=== PATIENT | female | born 1960 | race Native Hawaiian/Other Pacific Islander ===

== ENCOUNTER 2016-11-01 10:20 | Outpatient (CLI) | payer OTHER ==
[~2016-11-01 10:20] MED LIST: ALTOPREV40 MG; ALTOPREV40 MG OR; ALTOPREV40 MG PO; ARIP10TA PO; BENZSOL4 OT; CARV6.25; CARV6.25 PO; CYCL10TA35 PO; DIVA500T PO; FOLI1TAB26; GLUCOPHAGE1000 MG; GLUCOPHAGE1000 MG PO; LEVO0.08 PO; METF100038 OR; SERT100T PO; UNITH DIRECT88 MCG PO; UNITHROID75 MCG; ZESTRIL40 MG; ZESTRIL40 MG OR
== END 2016-11-01 19:30 | disposition home or self-care (01) ==
LOC: RAD 10:20
DX: M79.601 Pain in right arm (principal)

== ENCOUNTER 2016-12-20 09:56 | Outpatient (CLI) | payer OTHER ==
[2016-12-20 10:50] LABS: PLATELET COUNT 131 K/uL (152-353)
[2016-12-20 11:22] LABS: POTASSIUM 4.7 mmol/L (3.6-5.2)
== END 2016-12-20 19:06 | disposition home or self-care (01) ==
LOC: LABW 09:56
PROVIDERS: Internal Medicine
DX: E78.4 Other hyperlipidemia (principal); E11.9 Type 2 diabetes mellitus without complications; D64.89 Other specified anemias; I10 Essential (primary) hypertension
CPT/HCPCS: 36415; 80053; 80061; 83036; 84439; 84443; 84550; 85027

== ENCOUNTER 2017-03-31 09:46 | Outpatient (CLI) | payer OTHER ==
[2017-03-31 10:20] LABS: PLATELET COUNT 193 K/uL (152-353)
[2017-03-31 10:51] LABS: POTASSIUM 4.5 mmol/L (3.6-5.2)
== END 2017-03-31 18:58 | disposition home or self-care (01) ==
LOC: LABW 09:46
PROVIDERS: Psychiatry & Neurology Psychiatry
DX: F25.1 Schizoaffective disorder, depressive type (principal); Z79.899 Other long term (current) drug therapy; Z51.81 Encounter for therapeutic drug level monitoring
CPT/HCPCS: 36415; 80053; 80061; 84443; 85027

== ENCOUNTER 2017-09-03 08:41 | Outpatient (CLI) | payer OTHER ==
[2017-09-03 09:19] LABS: PLATELET COUNT 226 K/uL (152-353)
== END 2017-09-04 08:41 | disposition home or self-care (01) ==
LOC: LABW 08:41
PROVIDERS: Internal Medicine
DX: E11.9 Type 2 diabetes mellitus without complications (principal); E03.8 Other specified hypothyroidism
CPT/HCPCS: 36415; 80053; 80061; 81000; 82043; 82570; 83036; 84439; 84443; 85027

== ENCOUNTER 2018-08-18 08:38 | Outpatient (CLI) | payer OTHER ==
[2018-08-18 09:14] LABS: PLATELET COUNT 213 K/uL (152-353)
[2018-08-18 09:23] LABS: POTASSIUM 4.3 mmol/L (3.6-5.2)
== END 2018-08-18 19:23 | disposition home or self-care (01) ==
LOC: LABW 08:38
PROVIDERS: Internal Medicine
DX: Z79.899 Other long term (current) drug therapy (principal); F25.1 Schizoaffective disorder, depressive type; E11.9 Type 2 diabetes mellitus without complications; M10.00 Idiopathic gout, unspecified site; E03.9 Hypothyroidism, unspecified; E78.5 Hyperlipidemia, unspecified
CPT/HCPCS: 36415; 80053; 80061; 83036; 84439; 84443; 84550; 85027

== ENCOUNTER 2019-03-31 09:29 | Outpatient (CLI) | payer OTHER ==
[2019-03-31 09:53] LABS: PLATELET COUNT 266 K/uL (152-353)
[2019-03-31 10:22] LABS: POTASSIUM 4.7 mmol/L (3.6-5.2)
== END 2019-03-31 22:53 | disposition home or self-care (01) ==
LOC: LABW 09:29
PROVIDERS: Internal Medicine
DX: Z79.899 Other long term (current) drug therapy (principal); F25.1 Schizoaffective disorder, depressive type; E03.8 Other specified hypothyroidism; I10 Essential (primary) hypertension; E11.9 Type 2 diabetes mellitus without complications
CPT/HCPCS: 36415; 80053; 80061; 80164; 81000; 83036; 84439; 84443; 85027

== ENCOUNTER 2019-04-15 16:28 | Outpatient (CLI) | payer OTHER | END 2019-04-15 23:22 | disposition home or self-care (01) | LOC: RAD 16:28 | DX: R07.89 Other chest pain (principal) ==

== ENCOUNTER 2019-08-24 12:22 | Outpatient (CLI) | payer OTHER | END 2019-08-24 19:28 | disposition home or self-care (01) | LOC: RAD 12:22 | DX: M85.89 Other specified disorders of bone density and structure, multiple sites (principal) ==

== ENCOUNTER 2020-09-14 14:58 | Outpatient (CLI) | payer OTHER ==
[2020-09-14 15:59] LABS: PLATELET COUNT 134 K/uL (152-353)
[2020-09-14 16:21] LABS: POTASSIUM 5.4 mmol/L (3.6-5.2)
== END 2020-09-14 19:37 | disposition home or self-care (01) ==
LOC: LAB 14:58
PROVIDERS: ATTEND Internal Medicine
DX: E11.9 Type 2 diabetes mellitus without complications (principal); M10.9 Gout, unspecified
CPT/HCPCS: 80053; 80061; 83036; 84439; 84443; 84550; 85027

== ENCOUNTER 2020-12-08 09:42 | Outpatient (CLI) | payer OTHER ==
[2020-12-22 14:22] LABS: PLATELET COUNT 174 K/uL (152-353)
[2020-12-22 14:29] LABS: POTASSIUM 4.8 mmol/L (3.6-5.2)
== END 2020-12-08 16:00 | disposition home or self-care (01) ==
LOC: LABW 09:42
PROVIDERS: ATTEND Internal Medicine
DX: Z00.00 Encounter for general adult medical examination without abnormal findings (principal); F25.1 Schizoaffective disorder, depressive type; E66.9 Obesity, unspecified; I10 Essential (primary) hypertension; E03.8 Other specified hypothyroidism; E11.69 Type 2 diabetes mellitus with other specified complication; Z79.899 Other long term (current) drug therapy; Z13.820 Encounter for screening for osteoporosis; E55.9 Vitamin D deficiency, unspecified
CPT/HCPCS: 80053; 80061; 80164; 81000; 82043; 82306; 82570; 83036; 84439; 84443; 85027

== ENCOUNTER 2022-05-20 14:24 | Outpatient (CLI) | payer OTHER | END 2022-05-20 20:09 | disposition home or self-care (01) | LOC: LAB 14:24 | PROVIDERS: ATTEND Internal Medicine | DX: L03.119 Cellulitis of unspecified part of limb (principal) | CPT/HCPCS: 87070; 87205 ==